=== PATIENT | female | born 1945 | race Caucasian/White ===

== ENCOUNTER 2021-12-26 10:42 | Inpatient (IN) | payer MEDICARE, BC ==
[2021-12-26 11:32] LABS: #Eosinphils 0.1 thou/uL (0.0-0.7); #Lymphocytes 0.7 thou/uL (1.20-3.40); #Monocytes 0.4 thou/uL (0.11-0.59); #Neutrophils 1.4 thou/uL (1.40-6.50); %Basophils 1.3 % (0.0-1.0); %Eosinophils 2.2 % (0.0-10.0); %Lymphocytes 26.1 % (21.0-51.0); %Monocytes 13.7 % (0.0-10.0); %Neutrophils 56.7 % (42.0-75.0); Hemoglobin 14.7 g/dL (12.0-16.0); MDiff Complete? YES; Macrocytosis MODERATE=16-30 cells (100X) (0-5/hpf); Mean Corpuscular HGB CONC 34.9 g/dL (32.0-36.0); Mean Corpuscular Hemoglobin 38.8 pg (27.0-31.0); Mean Platelet Volume 7.7 fL (7.4-10.4); Platelet Count 139 thou/uL (130-400); Platelet Morphology Comment Appears Adequate; RBC Distribution Width 13.3 % (11.5-14.5); White Blood Cell (WBC) Count 2.5 thou/uL (4.8-10.8)
[2021-12-26 11:33] LABS: ALT (SGPT) 9 U/L (8-55); AST (SGOT) 21 U/L (5-34); Albumin 4.1 g/dL (3.4-4.8); Alkaline Phosphatase 69 U/L (40-110); Anion Gap 15 mmol/L (10-20); BUN (Urea Nitrogen) 21 mg/dL (9.8-20.1); Bilirubin, Total 0.8 mg/dL (0.2-1.2); Calc. Creatinine Clearance 0 mL/min (70-130); Calcium 9.4 mg/dL (7.8-10.44); Carbon Dioxide 25 mmol/L (23-31); Chloride 105 mmol/L (98-107); Estimated GFR 70; Globulin 3.2 g/dL (2.4-3.5); Glucose 151 mg/dL (83-110); Potassium 4.7 mmol/L (3.5-5.1); Protein, Total 7.3 g/dL (5.8-8.1); Sodium 140 mmol/L (136-145)
[2021-12-26] MEDS ORDERED: Metoprolol Tartrate 5 MG/5 ML VIAL ONE (13:01)
[2021-12-26] MEDS ORDERED: Ondansetron ODT 4 MG TAB PO PRN (13:49)
[2021-12-26] MEDS ORDERED: Acetaminophen 325 MG TAB PO PRN (13:49)
[2021-12-26] MEDS ORDERED: Senokot S 8.6-50 MG TAB PO PRN (13:49)
[2021-12-26 14:45] LABS: Troponin I 0.024 ng/mL (< 0.028)
[2021-12-26] MEDS: Sodium Chloride 0.9% 1,000 ML IV SCH (16:22)
[2021-12-26] MEDS ORDERED: Diltiazem HCl 125 MG in Premix Bag 1 BAG IVPB SCH (17:15)
[2021-12-26 17:51] VITALS: BMI 23.3
[2021-12-26 18:12] LABS: Troponin I Less than 0.010 ng/mL (< 0.028)
[2021-12-26] MEDS: Apixaban 5 MG TAB PO SCH (20:04)
[2021-12-26] MEDS: Temazepam 15 MG CAP PO PRN (21:21)
[2021-12-26] MEDS: Metoprolol Tartrate 25 MG TAB PO SCH (23:36)
[2021-12-27] MEDS: Sodium Chloride 0.9% 1,000 ML IV SCH ×2 (04:27→17:51)
[2021-12-27 04:40] LABS: Band 6 % (5-11); Hemoglobin 13.7 g/dL (12.0-16.0); Lymphocytes 8 % (21-51); MDiff Complete? YES; Macrocytosis SLIGHT = 6-15 cells (100X) (0-5/hpf); Mean Platelet Volume 7.7 fL (7.4-10.4); Monocytes 14 % (0-10); Neutrophil 60 % (42-75); Platelet Count 134 thou/uL (130-400); Platelet Morphology Comment Appears Adequate; RBC Distribution Width 13.4 % (11.5-14.5); Reactive Lymphocytes 10 % (0-10); Red Blood Cell (RBC) Count 3.61 mill/uL (4.20-5.40); White Blood Cell (WBC) Count 2.7 thou/uL (4.8-10.8)
[2021-12-27 08:54] LABS: Albumin 3.9 g/dL (3.4-4.8)
[2021-12-27 08:55] LABS: Chloride 104 mmol/L (98-107); Potassium 4.1 mmol/L (3.5-5.1); Sodium 139 mmol/L (136-145)
[2021-12-27 08:56] LABS: Calcium 9.2 mg/dL (7.8-10.44); Glucose 152 mg/dL (83-110)
[2021-12-27 08:57] LABS: Globulin 3.3 g/dL (2.4-3.5); Protein, Total 7.2 g/dL (5.8-8.1)
[2021-12-27 08:58] LABS: Anion Gap 12 mmol/L (10-20); Bilirubin, Total 1.1 mg/dL (0.2-1.2); Carbon Dioxide 27 mmol/L (23-31)
[2021-12-27 08:59] LABS: Alkaline Phosphatase 62 U/L (40-110)
[2021-12-27 09:00] LABS: Calc. Creatinine Clearance 69 mL/min (70-130); Estimated GFR 91
[2021-12-27 09:01] LABS: BUN (Urea Nitrogen) 10 mg/dL (9.8-20.1)
[2021-12-27 09:02] LABS: ALT (SGPT) 7 U/L (8-55); AST (SGOT) 19 U/L (5-34)
[2021-12-27] MEDS: azaTHIOprine 50 MG TAB PO SCH (09:14)
[2021-12-27] MEDS: Apixaban 5 MG TAB PO SCH ×2 (09:14→21:44)
[2021-12-27] MEDS: Metoprolol Tartrate 25 MG TAB PO SCH ×2 (09:15→21:44)
[2021-12-27] MEDS ORDERED: Digoxin 0.5 MG/2 ML AMP SLOW IVP SCH (12:00)
[2021-12-27] MEDS: Temazepam 15 MG CAP PO PRN (21:44)
[2021-12-28] MEDS ORDERED: Diltiazem HCl 125 MG in Premix Bag 1 BAG IVPB SCH (03:19)
[2021-12-28] MEDS: Sodium Chloride 0.9% 1,000 ML IV SCH ×2 (05:43→20:22)
[2021-12-28] MEDS: azaTHIOprine 50 MG TAB PO SCH (09:01)
[2021-12-28] MEDS: Metoprolol Tartrate 25 MG TAB PO SCH ×2 (09:19→20:22)
[2021-12-28] MEDS ORDERED: Enoxaparin Sodium 60 MG/0.6 ML SYRINGE SC SCH ×3 (09:29→21:00)
[2021-12-28] MEDS: Apixaban 5 MG TAB PO SCH (10:37)
[2021-12-28] MEDS: Temazepam 15 MG CAP PO PRN (20:22)
[2021-12-29 04:28] LABS: Hemoglobin 13.1 g/dL (12.0-16.0); Mean Corpuscular HGB CONC 34.1 g/dL (32.0-36.0); Mean Corpuscular Hemoglobin 38.2 pg (27.0-31.0); Mean Platelet Volume 7.6 fL (7.4-10.4); Platelet Count 126 thou/uL (130-400); RBC Distribution Width 13.4 % (11.5-14.5); Red Blood Cell (RBC) Count 3.42 mill/uL (4.20-5.40); White Blood Cell (WBC) Count 2.5 thou/uL (4.8-10.8)
[2021-12-29 04:36] LABS: INR-International Normal Ratio 1.1; Prothrombin Time 14.7 sec (12.0-14.7)
[2021-12-29 04:48] LABS: Anion Gap 12 mmol/L (10-20); BUN (Urea Nitrogen) 11 mg/dL (9.8-20.1); Calc. Creatinine Clearance 72 mL/min (70-130); Carbon Dioxide 25 mmol/L (23-31); Chloride 109 mmol/L (98-107); Estimated GFR 92; Glucose 92 mg/dL (83-110); Potassium 3.7 mmol/L (3.5-5.1); Sodium 142 mmol/L (136-145)
[2021-12-29] MEDS ORDERED: Heparin 10,000 UNITS/ 10 ML VIAL ONE (10:23)
[2021-12-29] MEDS ORDERED: Heparin 25,000 units/D5W 500 ML ONE (10:23)
[2021-12-29] MEDS ORDERED: Lidocaine 1% (PF) 30 ML VIAL ONE (10:23)
[2021-12-29] MEDS ORDERED: Isoproterenol 0.2 MG/1 ML AMP ONE (10:23)
[2021-12-29] MEDS: azaTHIOprine 50 MG TAB PO SCH (10:26)
[2021-12-29] MEDS: Metoprolol Tartrate 25 MG TAB PO SCH ×2 (10:26→20:24)
[2021-12-29] MEDS: Sodium Chloride 0.9% 1,000 ML IV SCH (11:42)
[2021-12-29] MEDS ORDERED: Fentanyl 100 MCG/2 ML VIAL ONE (12:03)
[2021-12-29] MEDS ORDERED: Esmolol 100 MG/10 ML VIAL ONE (12:03)
[2021-12-29] MEDS ORDERED: Dexamethasone 20 MG/5 ML VIAL ONE (12:03)
[2021-12-29] MEDS ORDERED: PROPOFOL 200 MG/20 ML VIAL ONE (12:03)
[2021-12-29] MEDS ORDERED: Phenylephrine 10 MG/ML VIAL ONE (12:03)
[2021-12-29] MEDS ORDERED: Rocuronium Bromide 10 MG/ML (10ML VIAL) ONE (12:03)
[2021-12-29] MEDS ORDERED: Lidocaine 1% PF 5 ML VIAL ONE (12:03)
[2021-12-29] MEDS ORDERED: Glycopyrrolate 0.2 MG/ML 5 ML SYRINGE ONE (12:03)
[2021-12-29] MEDS ORDERED: Midazolam HCl 2 mg/2 ml Vial ONE (12:03)
[2021-12-29] MEDS ORDERED: Ondansetron PF 4 MG/2 ML Vial ONE (12:03)
[2021-12-29] MEDS ORDERED: Propofol 500 MG/50 ML VIAL ONE (12:03)
[2021-12-29] MEDS ORDERED: Protamine Sulfate 50 MG/5 ML VIAL ONE (14:54)
[2021-12-29] MEDS ORDERED: fentaNYL Citrate/PF 100 MCG/2 ML SYRINGE ONE (16:02)
[2021-12-29] MEDS: Apixaban 5 MG TAB PO SCH (20:24)
[2021-12-30] MEDS: Sodium Chloride 0.9% 1,000 ML IV SCH (04:58)
[2021-12-30] MEDS: azaTHIOprine 50 MG TAB PO SCH (08:59)
[2021-12-30] MEDS: Apixaban 5 MG TAB PO SCH (08:59)
[2021-12-30] MEDS: Metoprolol Tartrate 25 MG TAB PO SCH (09:52)
[2021-12-30 12:39] VITALS: BP 115/61; TEMP 97.4
== END 2021-12-30 15:13 | disposition home or self-care (01) | DRG 274 ==
LOC: SUATTDRO 10:42 → ERS 10:42 → IMCU/EMU 13:49 → 2NO 12-27 20:22
PROVIDERS: ADMIT Internal Medicine; ATTEND Internal Medicine
PROC: 02583ZZ Destruction of Conduction Mechanism, Percutaneous Approach (ICD-10-PCS; principal; 2021-12-29)
PROC: 02K83ZZ Map Conduction Mechanism, Percutaneous Approach (ICD-10-PCS; 2021-12-29)
PROC: 4A023FZ Measurement of Cardiac Rhythm, Percutaneous Approach (ICD-10-PCS; 2021-12-29)
PROC: 4A0234Z Measurement of Cardiac Electrical Activity, Percutaneous Approach (ICD-10-PCS; 2021-12-29)
PROC: 5A2204Z Restoration of Cardiac Rhythm, Single (ICD-10-PCS; 2021-12-29)
PROC: B24BZZ4 Ultrasonography of Heart with Aorta, Transesophageal (ICD-10-PCS; 2021-12-29)
DX: I48.4 Atypical atrial flutter (principal); I48.0 Paroxysmal atrial fibrillation; Z20.822 Contact with and (suspected) exposure to COVID-19; I10 Essential (primary) hypertension; K75.4 Autoimmune hepatitis; I49.5 Sick sinus syndrome; Z96.641 Presence of right artificial hip joint; R79.89 Other specified abnormal findings of blood chemistry; D75.89 Other specified diseases of blood and blood-forming organs; E53.8 Deficiency of other specified B group vitamins; I44.0 Atrioventricular block, first degree; I08.1 Rheumatic disorders of both mitral and tricuspid valves; I47.1 Supraventricular tachycardia; Z90.89 Acquired absence of other organs; Z90.710 Acquired absence of both cervix and uterus; Z79.899 Other long term (current) drug therapy; Z82.49 Family history of ischemic heart disease and other diseases of the circulatory system; Z79.01 Long term (current) use of anticoagulants; Z86.73 Personal history of transient ischemic attack (TIA), and cerebral infarction without residual deficits; Z87.19 Personal history of other diseases of the digestive system
CPT/HCPCS: 36415; 71045; 80048; 80053; 82607; 83605; 83735; 84443; 84484; 85025; 85027; 85347; 85610; 87040; 93005; 93010; 93306; 93312; 93613; 93656; 93657; 96361; 96374; C1731; C1732; C1759; C1766; C1769; C1894; C2630; J1100; J1160; J1644; J1650; J2001; J2250; J2370; J2405; J2704; J2710; J2720; J3010; J7050; J7500; Q0162; U0003; U0005